=== PATIENT | female | born 1995 | race Caucasian/White ===

== ENCOUNTER 2017-01-09 19:38 | Emergency (ER) | payer OTHER ==
[2017-01-09 21:25] LABS: URINE BILIRUBIN NEGATIVE (NEGATIVE); URINE BLOOD TRACE (NEGATIVE); URINE GLUCOSE (UA) NORMAL (NORMAL); URINE KETONE 2+ (NEGATIVE); URINE LEUKOCYTE ESTERASE 1+ (NEGATIVE); URINE NITRATE POSITIVE (NEGATIVE); URINE PROTEIN 1+ (NEGATIVE)
[2017-01-09 21:26] LABS: URINE BACTERIA 1+ (NONE SEEN); URINE MUCUS 1+; URINE RBC 0-5 /[HPF] (0-2); URINE SQUAMOUS EPITHELIAL CELL 0-10 /[HPF] (NONE SEEN)
== END 2017-01-09 21:59 | disposition home or self-care (01) ==
LOC: ER 19:38
PROVIDERS: Internal Medicine
DX: N39.0 Urinary tract infection, site not specified (principal); R31.9 Hematuria, unspecified; R10.9 Unspecified abdominal pain; R11.2 Nausea with vomiting, unspecified; R07.81 Pleurodynia; Z87.442 Personal history of urinary calculi; F17.210 Nicotine dependence, cigarettes, uncomplicated; Z88.5 Allergy status to narcotic agent
CPT/HCPCS: 71020; 81001; 81025; 87086; 99284-25